=== PATIENT | female | born 1975 | race Caucasian/White ===

== ENCOUNTER 2023-11-21 20:06 | Emergency (ER) | payer OTHER, SELFPAY ==
[2023-11-21] VITALS (8 sets, daily range): BP systolic 145–156; BP diastolic 91–93; PULSE 70–84; RESP 14–19; TEMP 36.9; O2SAT 95–99; BMI 33.0
--- NOTE | 2023-11-21 20:21 | ECG_ITS ---
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 Measurements Intervals [place] Rate: 82 P: 66 MA: 147 QRS: 74 QRSD: 78 T: 85 QT: 377 QTc: 440 Interpretive Statements SINUS RHYTHM No previous ECG available for comparison Electronically Signed On 11-22-2023 9:22:15 CDT by Joel Zhou M.D. [id number] f
--- NOTE | 2023-11-21 20:43 | XRR_ITS ---
PROCEDURE INFORMATION: Exam: XR Chest Exam date and time: 11/21/2023 9:23 PM Age: 48 years old Clinical indication: Chest pressure; Patient HX: Chest pain; Hypertension TECHNIQUE: Imaging protocol: Radiologic exam of the chest. Views: 1 view. COMPARISON: No relevant prior studies available. FINDINGS: Lungs: Minimal streaky atelectasis/scar in the left lung base. No consolidation. Pleural spaces: Unremarkable. No pleural effusion. No pneumothorax. Heart/Mediastinum: Unremarkable. No cardiomegaly. Bones/joints: Unremarkable. XR/XR chest 1V portable [id number] IMPRESSION: No acute plain radiographic cardiopulmonary abnormality.
[2023-11-21 20:53] LABS: Basophils # 0.1 10^3/uL (0.0-0.1); Basophils % 0.7 %; Eosinophils # 0.2 10^3/uL (0.0-0.8); Eosinophils % 1.7 %; Hematocrit 38.3 % (36-47); Lymphocytes # 4.2 10^3/uL (0.8-4.8); Mean Corpuscular HGB Conc 33.4 g/dL (30-55); Mean Corpuscular Hemoglobin 30.1 pg (27-33); Mean Corpuscular Volume 90.1 fl (85-98); Mean Platelet Volume 8.9 fL (7.4-10.4); Monocytes # 0.7 10^3/uL (0.2-0.9); Monocytes % 8.1 %; Neutrophils # 3.77 10^3/uL (1.8-7.7); Neutrophils % 42.2 %; Nucleated Red Blood Cells % 0 %; Platelet Count 381 10^3/cmm (157-399); Red Blood Count 4.25 10^6/uL (3.85-5.65); Red Cell Distribution Width 13.4 % (12.1-15.1); White Blood Count 8.93 10^3/uL (3.29-11.43)
[2023-11-21 21:15] LABS: Troponin(5th) Baseline < 6 ng/L (0-10)
[2023-11-21 21:20] LABS: Alanine Aminotransferase 16 U/L (0-33); Alkaline Phosphatase 64 U/L (35-105); Aspartate Amino Transferase 13 U/L (0-32); Blood Urea Nitrogen 23 mg/dL (6-20); Calcium 8.8 mg/dL (8.5-10.5); Carbon Dioxide 25 mmol/L (22-29); Chloride 105 mmol/L (98-107); Creatinine Clr Calc Pharmacy 113.6761; Globulin 2.2 g/dL (1.3-4.6); Glomerular Filtration Rate 76.9 mL/min (90-130); Glucose 95 mg/dL (65-115); Osmolality Calculated 297 mOsm/kg (285-295); Sodium 142 mmol/L (136-145); Total Bilirubin 0.2 mg/dL (0.15-1.2); Total Protein 6.2 g/dL (6.6-8.7)
--- NOTE | 2023-11-21 22:37 | ED_ITS ---
HPI - Chest Pain 2 General: Chief Complaint: Chest Pain Stated Complaint: Chest Pains Time Seen by Provider: 11/21/23 20:43 History of Present Illness: Patient presents to the ER with substernal chest pain off and on for the last few weeks, nothing brings on nothing to go away. Patient also reported tonight when she had 1 episode it radiated up into her jaw and down her left arm. Patient is also been having issues with her blood pressure. Today she notes her blood pressure is only upwards of about 180/130, patient had been on lisinopril hydrochlorothiazide, rosuvastatin in the past but she stopped all of these about in June when she ran out of refills and moved. Patient does not have a cardiac history other than high blood pressure. Patient denies any shortness of breath, nausea vomiting, diaphoresis Review of Systems 2 General: Reports: 10 or more systems reviewed and unremarkable except in HPI and below Physical Exam 2 Const: COMMON NORMALS: no acute distress, average body habitus, patient oriented x3, no limitations, healthy appearing, alert and well nourished HENMT: COMMON NORMALS: normocephalic, atraumatic, hearing grossly normal bilaterally, external ears normal, Normal external nose present and moist oral mucous membranes HEAD & SCALP: normocephalic and atraumatic NOSE: Normal external nose present EXTERNAL EAR: Yes external ears normal Neck/C-Spine: COMMON NORMALS: no JVD Chest: COMMONS NORMALS: normal inspection of the chest and normal palpation of entire chest wall Resp: COMMON NORMALS: normal respiratory effort, No retractions, No use of accessory muscles and clear to auscultation bilaterally AUSCULTATION: clear to auscultation bilaterally Cardio: COMMON NORMALS: no JVD, regular rate, regular rhythm, S1 normal heart sound present, S2 normal heart sound present, No gallops present (Cardio), No clicks present (Cardio), No murmurs present (Cardio) and No rub (Cardio) R ATE: regular rate RHYTHM: regular rhythm HEART SOUNDS: S1 normal heart sound present and S2 normal heart sound present GI: COMMON NORMALS: Normal to inspection, nondistended, normoactive bowel sounds present, Soft to palpation, non-tender, No hepatosplenomegaly present and no masses PALPATION: Yes Soft to palpation and Yes No hepatosplenomegaly present Neuro: COMMON NORMALS: patient oriented x3 SENSORIUM/ORIENTATION: Yes alert Course 2 Vital Signs: Vital signs: Vital Signs Temperature 98.4 F 11/21/23 20:18 Pulse Rate 72 11/21/23 23:48 Respiratory Rate 18 11/21/23 23:48 Blood Pressure 152/91 11/21/23 23:48 Pulse Oximetry 99 11/21/23 23:48 Oxygen Delivery Me thod Room Air 11/21/23 20:18 MDM - Chest Pain Medical Decision Making Presented with chest pain and hypertension, she was worked up in a standard chest pain fashion with serial EKGs and serial enzymes chest x-ray, all of which was essentially benign, patient's blood pressure improved to 152/91, patient was on hydrochlorothiazide but stopped it a while back and we will put her back on it. Will have her follow-up with her PCP. Differential Diagnosis Unlikely acute massive pulmonary embolism, acute respiratory failure, acute myocardial infarction, cardiac arrest or sudden cardiac Medical Records I reviewed the patient's medical records. Lab Data I reviewed the patient's lab results. 11/21/23 20:50 11/21/23 20:50 Radiology Impressions Chest X-Ray 11/21/23 20:43 IMPRESSION: No acute plain radiographic cardiopulmonary abnormality. Laboratory Results WBC 8.93 10^3/uL (3.29-11.43) 11/21/23 20:50 RBC 4.25 10^6/uL (3.85-5.65) 11/21/23 20:50 Hgb 12.80 g/dL (11.27-16.99) 11/21/23 20:50 Hct 38.3 % (36-47) 11/21/23 20:50 MCV 90.1 fl (85-98) 11/21/23 20:50 MCH 30.1 pg (27-33) 11/21/23 20:50 MCHC 33.4 g/dL (30-55) 11/21/23 20:50 RDW 13.4 % (12.1-15.1) 11/21/23 20:50 Plt Count 381 10^3/cmm (157-399) 11/21/23 20:50 MPV 8.9 fL (7.4-10.4) 11/21/23 20:50 Neut % (Auto) 42.2 % 11/21/23 20:50 Lymph % (Auto) 47.0 % 11/21/23 20:50 [place] % (Auto) 8.1 % 11/21/23 20:50 Eos % (Auto) 1.7 % 11/21/23 20:50 Baso % (Auto) 0.7 % 11/21/23 20:50 Neut # (Auto) 3.77 10^3/uL (1.8-7.7) 11/21/23 20:50 Lymph # (Auto) 4.2 10^3/uL (0.8-4.8) 11/21/23 20:50 [place] # (Auto) 0.7 10^3/uL (0.2-0.9) 11/21/23 20:50 Eos # (Auto) 0.2 10^3/uL (0.0-0.8) 11/21/23 20:50 Baso # (Auto) 0.1 10^3/uL (0.0-0.1) 11/21/23 20:50 Nucleated RBC % (auto) 0 % 11/21/23 20:50 Nucleated RBCs # 0.0 /100WBC 11/21/23 20:50 Sodium 142 mmol/L (136-145) 11/21/23 20:50 Potassium 4.0 mmol/L (3.5-5.1) 11/21/23 20:50 Chloride 105 mmol/L (98-107) 11/21/23 20:50 Carbon Dioxide 25 mmol/L (22-29) 11/21/23 20:50 Anion Gap 16.0 (5-19) 11/21/23 20:50 BUN 23 mg/dL (6-20) H 11/21/23 20:50 Creatinine 0.8 mg/dL (0.5-0.9) 11/21/23 20:50 GFR Calculation 76.9 mL/min (90-130) L 11/21/23 20:50 Glucose 95 mg/dL (65-115) 11/21/23 20:50 Calculated Osmolality 297 mOsm/kg (285-295) H 11/21/23 20:50 Calcium 8.8 mg/dL (8.5-10.5) 11/21/23 20:50 Total Bilirubin 0.2 mg/dL (0.15-1.2) 11/21/23 20:50 AST 13 U/L (0-32) 11/21/23 20:50 ALT 16 U/L (0-33) 11/21/23 20:50 Alkaline Phosphatase 64 U/L (35-105) 11/21/23 20:50 Troponin T Baseline < 6 ng/L (0-10) 11/21/23 20:50 Troponin T 120 Minute 6.00 ng/L (0-10) 11/21/23 23:06 Delta Troponin T 0.36662 ABS# (0-10) 11/21/23 23:06 Total Protein 6.2 g/dL (6.6-8.7) L 11/21/23 20:50 Albumin 4.0 g/dL (3.5-5.2) 11/21/23 20:50 Globulin 2.2 g/dL (1.3-4.6) 11/21/23 20:50 All radiology interpretation(s) finalized by discharge Discharge Plan Discharge Patient Disposition: Home Clinical Impression: Chest pain Qualifiers: Chest pain type: unspecified Qualified Code(s): R07.9 - Chest pain, unspecified Hypertension Qualifiers: Hypertension type: unspecified Qualified Code(s): I10 - Essential (primary) hypertension Condition: Stable Prescriptions: New hydrochlorothiazide 25 mg tablet 12.5 mg PO QAM Qty: 30 0RF Discharge Orders: Discharge ED (Routine); Ordered 11/21/23 Ordered By: Mitch Ferrara Patient Instructions: Hypertension, Chest Pain (ED) Activity Restrictions/Additional Instructions: Thank you for choosing [facility] for your healthcare needs today. Please realize that you were seen in the emergency department and that we are providing you with an emergency medical screening exam and this may not be a complete and all exclusive of all testing and/or medical workup we may need to determine your element or severity of your illness. It is very important that you follow-up as instructed with your primary care provider or specialist for the additional evaluation and to discuss your medical treatment plan. You may return to the emergency department should you have concerns or if your condition changes or worsens in any way. Coding Level of Care Code ED Flap Curer for Santosh Barrow
--- NOTE | 2023-11-21 22:44 | ECG_ITS ---
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 Measurements Intervals [place] Rate: 68 P: 70 NE: 165 QRS: 76 QRSD: 87 T: 83 QT: 402 QTc: 428 Interpretive Statements SINUS RHYTHM Compared to ECG 11/21/2023 20:11:33 No significant changes Electronically Signed On 11-22-2023 9:24:53 CDT by Joel Zhou M.D. [id number]
[2023-11-21 23:30] LABS: Troponin 5 2HR Delta 0.00001 ABS# (0-10)
== END 2023-11-21 23:49 | disposition home or self-care (01) ==
PROVIDERS: Emergency Provider Emergency Medicine
DX: R07.9 Chest pain, unspecified (principal); I10 Essential (primary) hypertension
CPT/HCPCS: 36415; 71045; 80053; 84484; 85025; 93005; 99285

== ENCOUNTER → 2023-12-07 11:45 | Outpatient (BNVA) | payer OTHER, SELFPAY | PROVIDERS: PCP Registered Nurse; Visit Provider Registered Nurse | DX: I10 Essential (primary) hypertension (principal) | CPT/HCPCS: 80061 ==

== ENCOUNTER 2024-02-01 12:26 | Outpatient (CLI) | payer OTHER, SELFPAY ==
--- NOTE | 2024-02-01 12:20 | MM_ITS ---
WS: [id number] BILATERAL 3D TOMOSYNTHESIS DIGITAL SCREENING MAMMOGRAM WITH CAD CLINICAL INFORMATION: SCREENING HISTORY: Screening mammogram. No current complaints. COMPARISON: 2022 TECHNIQUE: Bilateral CC and MLO. FINDINGS: The breast are composed of extremely dense tissue, which can limit the detection of small underlying mass lesions. No suspicious focal mass, asymmetry, calcifications, or architectural distortion. No ev idence of malignancy. Incidental punctate and lucent centered calcifications MM/MM scr tomosynthesis [id number] IMPRESSION: DENSITY: The breasts are extremely dense, which lowers the sensitivity of mammo graphy. BI-RADS: 2 - Benign FOLLOW UP: 1 Year Follow-up Recommend return to annual screening mammography.
== END 2024-02-01 12:27 | disposition home or self-care (01) ==
LOC: MOBLMAM 12:29
PROVIDERS: PCP Registered Nurse; Visit Provider Registered Nurse
DX: Z12.31 Encounter for screening mammogram for malignant neoplasm of breast (principal); R92.1 Mammographic calcification found on diagnostic imaging of breast
CPT/HCPCS: 77063; 77067

== ENCOUNTER → 2024-02-16 08:11 | Outpatient (BNVA) | payer OTHER, SELFPAY | PROVIDERS: PCP Registered Nurse; Visit Provider Registered Nurse | DX: I10 Essential (primary) hypertension (principal) | CPT/HCPCS: 85025 ==